=== PATIENT | male | born 1985 | race Caucasian/White ===

== ENCOUNTER 2018-12-26 16:03 | Emergency (ER) | payer OTHER ==
[2018-12-26 16:08] VITALS: BP 134/74
--- NOTE | 2018-12-26 16:42 | ER Document Report ---
HPI - HPI Time Seen by Provider: 12/26/18 16:28 Pain Level: 4 Context: Patient is a 33-year-old male presents emergency department with a chief complaint of a cough and congestion. He has had his symptoms for the past 3 days. 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 Patient has had some clear rhinorrhea. Started Mucinex yesterday. He denies any fever, body aches, chills, or any other symptoms. He states he feels like, "I feel like a bubble head." - CONSTITUTIONAL Constitutional: DENIES: Fever, Chills - EENT EENT: REPORTS: Sore Throat, Nasal Drainage-Clear, Congestion. DENIES: Nasal Drainage-Purulent, Eye problems - NEURO Neurology: DENIES: Headache, Weakness, Vision blurred, Dizzinesss / Vertigo - CARDIOVASCULAR Cardiovascular: DENIES: Chest pain - RESPIRATORY Respiratory: REPORTS: Coughing. DENIES: Trouble Breathing - GASTROINTESTINAL Gastrointestinal: DENIES: Abdominal Pain, Nausea, Patient vomiting - REPRODUCTIVE Reproductive: DENIES: : - MUSCULOSKELETAL Musculoskeletal: DENIES: Extremity pain - DERM Skin Color: Normal Skin Problems: None Past Medical History - Social History Smoking Status: Never Smoker Chew tobacco use (# tins/day): Yes Frequency of alcohol use: Occasional Family History: Reviewed & Not Pertinent Patient has suicidal ideation: No Patient has homicidal ideation: No Vertical Provider Document - CONSTITUTIONAL Agree With Documented VS: Yes Exam Limitations: No Limitations General Appearance: No Apparent Distress - INFECTION CONTROL TRAVEL OUTSIDE OF THE [place] IN LAST 30 DAYS: No - HEENT HEENT: Atraumatic, Normocephalic, PERRLA. negative: Pharyngeal Exudate, Pharyngeal Tenderness, Pharyngeal Erythema, Tympanic Membrane Red, Tympanic Membrane Bulging Notes: Clear rhinorrhea noted - NECK Neck: Normal Inspection - RESPIRATORY Respiratory: Breath Sounds Normal, No Respiratory Distress. negative: Chest Non-Tender, Rales, Rhonchi, Wheezing - CARDIOVASCULAR Cardiovascular: Regular Rate, Regular Rhythm Pulses: Normal: Radial - MUSCULOSKELETAL/EXTREMETIES Musculoskeletal/Extremeties: FROM - NEURO Level of Consciousness: Awake, Alert, Appropriate Motor/Sensory: No Motor Deficit, No Sensory Deficit - DERM Integumentary: Warm, Dry, No Rash Course - Re-evaluation Re-evalutation: 12/26/18 Presentation is most consistent with a viral upper respiratory infection. Patient is overall well appearance, vitals within normal limits, well-hydrated. Patient denies any headache, neck pain, and has no evidence of meningismus on examination. Lungs are clear bilaterally. No evidence of respiratory distress. Based on clinical exam and history, I do not suspect an acute pneumonia, meningitis, strep pharyngitis, or an acute encephalitis. No laboratory or imaging testing is indicated at this time. Will discharge patient with return precautions and followup recommendations. They are in agreement this plan have verbalized understanding return precautions. - Vital Signs Vital signs: Temp Pulse Resp BP Pulse Ox 98.4 F 80 134/74 H 98 12/26/18 16:07 12/26/18 16:07 12/26/18 16:07 12/26/18 16:07 Discharge - Discharge Clinical Impression: Upper respiratory infection, viral, Cough Condition: Stable Disposition: HOME, SELF-CARE Instructions: Upper Respiratory Illness ([facility]) Additional Instructions: You were seen today in the emergency department for a cough and congestion. Please continue your Mucinex that you bought. You are also being given Tessalon Perles and cetirizine to help with your symptoms. Please follow-up with your primary care provider in regards to this visit. Take Tylenol 1000 mg and B Profen 600 mg every 6 hours for any aches or pains. Make sure you get plenty of rest. Make sure to drink plenty of fluids. If you have worsening symptoms, please return to the emergency department. Prescriptions: Benzonatate [Tessalon Perle 100 mg Capsule] 100 mg PO Q8HP PRN #40 cap PRN Reason: Cetirizine HCl [All Day Allergy] 10 mg PO DAILY #30 tablet Forms: Return to Work
== END 2018-12-26 17:03 | disposition home or self-care (01) ==
LOC: ER 16:03
DX: J06.9 Acute upper respiratory infection, unspecified (principal); R68.89 Other general symptoms and signs
CPT/HCPCS: 99283

== ENCOUNTER 2019-03-08 09:28 | Emergency (ER) | payer OTHER ==
[2019-03-08] MEDS ORDERED: ACETAMINOPHEN 325 MG TABLET PO ONE (09:52)
[2019-03-08] MEDS ORDERED: IBUPROFEN 800 MG TABLET PO ONE (09:52)
--- NOTE | 2019-03-08 09:55 | ER Document Report ---
HPI - HPI Time Seen by Provider: 03/08/19 09:49 Notes: Otherwise healthy 33-year-old male presenting to the emergency department with 3-day history of cough, congestion, chills and body aches. Patient thinks he may have a really bad cold. Patient reports he did get an influenza vaccine. He denies any chest pain or shortness of breath. - REPRODUCTIVE Reproductive: DENIES: : Past Medical History - General Information source: Patient - Social History Smoking Status: Never Smoker Frequency of alcohol use: None Family History: Reviewed & Not Pertinent - Medical History Medical History: Negative Surgical Hx: Negative - Immunizations Immunizations up to date: Yes Vertical Provider Document - CONSTITUTIONAL Notes: PHYSICAL EXAMINATION: GENERAL: Well-appearing, well-nourished and in no acute distress. HEAD: Atraumatic, normocephalic. EYES: Pupils equal round and reactive to light, extraocular movements intact, sclera anicteric, conjunctiva are normal. ENT: Nares patent, oropharynx clear without exudates. Moist mucous membranes. NECK: Normal range of motion, supple without lymphadenopathy LUNGS: Breath sounds clear to auscultation bilaterally and equal. No wheezes rales or rhonchi. HEART: Regular rate and rhythm without murmurs ABDOMEN: Soft, nontender, nondistended abdomen. No guarding, no rebound. No masses appreciated. Musculoskeletal: Normal range of motion, no pitting or edema. No cyanosis. NEUROLOGICAL: Cranial nerves grossly intact. Normal speech, normal gait. Normal sensory, motor exams PSYCH: Normal mood, normal affect. SKIN: Warm, Dry, normal turgor, no rashes or lesions noted. - INFECTION CONTROL TRAVEL OUTSIDE OF THE [place] IN LAST 30 DAYS: No Course - Re-evaluation Re-evalutation: Laboratory 03/08/19 10:01 Influenza A (Rapid) NEGATIVE Influenza B (Rapid) NEGATIVE Patient appears well, nontoxic, influenza testing negative. Likely viral illness. Patient reports he needs a work note which was his main concern today. Patient has had multiple sick contacts in his home. Encourage Tylenol or ibuprofen for fever or body aches, push fluids, good handwashing. Return if worse. - Vital Signs Vital signs: Temp Pulse Resp BP Pulse Ox 98.7 F 103 H 22 H 120/70 99 03/08/19 09:38 03/08/19 09:38 03/08/19 09:38 03/08/19 09:38 03/08/19 09:38 Discharge - Discharge Clinical Impression: Flu-like symptoms, Viral illness Condition: Stable Disposition: HOME, SELF-CARE Instructions: Viral Syndrome ([facility]) Additional Instructions: Your influenza test was negative today. You likely have a viral illness similar to influenza. Please take [id number] Tylenol and ibuprofen for any fever or body aches. Take medications I have prescribed exactly as directed. Drink plenty of fluids. Get plenty of rest. No work until Wednesday. Prescriptions: Benzonatate [Tessalon Perles 100 mg Capsule] 1 - 2 tab PO Q8HP PRN #30 capsule PRN Reason: RX: Prednisone [Deltasone 20 mg Tablet] 3 tab PO DAILY 5 Days #15 tablet Forms: Return to Work
[2019-03-08 10:24] LABS: A TYPE INFLUENZA AG NEGATIVE (NEGATIVE); B INFLUENZA AG NEGATIVE (NEGATIVE)
[2019-03-08 11:08] VITALS: BP 108/68
== END 2019-03-08 11:14 | disposition home or self-care (01) ==
LOC: ER 09:28
DX: J11.1 Influenza due to unidentified influenza virus with other respiratory manifestations (principal); B34.9 Viral infection, unspecified; R05 Cough; R09.81 Nasal congestion; M79.10 Myalgia, unspecified site
CPT/HCPCS: 87804; 99283